=== PATIENT | male | born 1990 | race Caucasian/White ===

== ENCOUNTER 2019-05-06 10:41 | Emergency (ER) | payer BC, MEDICAID ==
[2019-05-06] MEDS ORDERED: Sodium Chloride 0.9% 10 ML Syringe FLUSH PRN (11:49)
[2019-05-06] MEDS ORDERED: Ondansetron 4 MG/2 ML SDV IVPUSH ONE (11:49)
[2019-05-06] MEDS ORDERED: Sodium Chloride 0.9% 1,000 ML IV SCH (12:00)
--- NOTE | 2019-05-06 12:45 | CR ---
Chest: Portable view of the chest was obtained. Comparison: No previous chest x-ray. Heart size and mediastinum are normal. Increased density within the left base and within the right upper lung. Lungs otherwise are clear. Bony structures are grossly intact. Impression: 1. Increased density within the left base and within the right upper lung most likely representing areas of pneumonia. Diagnostic code #3 This report was dictated in [place] Standard Time
--- NOTE | 2019-05-06 14:06 | EDM.PDOC ---
ED HPI GENERAL MEDICAL PROBLEM - General Chief Complaint: Gastrointestinal Problem Stated Complaint: SOB/FLU SYMPTOMS Time Seen by Provider: 05/06/19 11:42 Source of Information: Reports: Patient - History of Present Illness INITIAL COMMENTS - FREE TEXT/NARRATIVE: 28-year-old male comes in with history of nausea, vomiting, diarrhea for many days. We'll he is also coughing. Some sore throat symptoms along with that. Having chills but no obvious fever. The vomiting diarrhea is now somewhat better. The coughing has gotten worse. Treatments COLLECTIONS SPECIALIST: Reports: Other (see below) Other Treatments COLLECTIONS SPECIALIST: none - Related Data Allergies Allergy/AdvReac Type Severity Reaction Status Date / Time phenytoin [From Dilantin] Allergy Other Verified 05/06/19 11:02 Home Meds: Home Meds Doxycycline [Vibramycin] 100 mg PO BID #20 tab 05/06/19 [Rx] Past Medical History Psychiatric History: Reports: ADD, ADHD, Bipolar, Learning Disability - Past Surgical History GI Surgical History: Reports: Hernia, Abdominal Social & Family History - Tobacco Use Smoking Status *Q: Current Every Day Smoker Years of Tobacco use: 12 Packs/Tins Daily: 1.5 Used Tobacco, but Quit: No - Caffeine Use Caffeine Use: Reports: Coffee, Soda - Recreational Drug Use Recreational Drug Type: Reports: Marijuana/Hashish Other Recreational Drug Type: daily ED ROS GENERAL - Review of Systems Review Of Systems: See Below Constitutional: Reports: Fever, Chills HEENT: Reports: Rhinitis (Mild), Throat Pain Respiratory: Reports: Shortness of Breath, Cough, Sputum Cardiovascular: Reports: Chest Pain GI/Abdominal: Reports: Diarrhea, Decreased Appetite, Nausea (With coughing), Vomiting Musculoskeletal: Reports: Other Skin: Denies: Rash (Generalized achiness) Neurological: Reports: Dizziness ED EXAM, GENERAL - Physical Exam Exam: See Below General Appearance: Alert, Mild Distress Throat/Mouth: Normal Inspection, Normal Oropharynx Head: Atraumatic Neck: Supple Respiratory/Chest: No Respiratory Distress, Lungs Clear, Normal Breath Sounds. No: Rhonchi, Wheezing Cardiovascular: Regular Rate, Rhythm GI/Abdominal: Soft, Non-Tender. No: Guarding Extremities: Normal Inspection, Normal Range of Motion Neurological: Alert, Oriented, No Motor/Sensory Deficits Skin Exam: Warm, Dry, Normal Color, No Rash Course - Vital Signs Last Recorded V/S: Last Vital Signs Temp 99.6 F 05/06/19 13:55 Pulse 97 05/06/19 13:55 Resp 18 05/06/19 13:55 BP 132/85 05/06/19 13:55 Pulse Ox 96 05/06/19 13:55 - Orders/Labs/Meds Labs: Laboratory Tests 05/06/19 05/06/19 Range/Units 12:00 12:00 WBC 13.23 H (4.23-9.07) K/mm3 RBC 5.10 (4.63-6.08) M/mm3 Hgb 16.2 (13.7-17.5) gm/dl Hct 45.6 (40.1-51.0) % MCV 89.4 (79.0-92.2) fl MCH 31.8 (25.7-32.2) pg MCHC 35.5 (32.2-35.5) g/dl RDW Std Deviation 38.8 (35.1-43.9) fL Plt Count 307 (163-337) K/mm3 MPV 8.8 L (9.4-12.3) fl Neut % (Auto) 85.6 H (34.0-67.9) % Lymph % (Auto) 5.4 L (21.8-53.1) % Ida % (Auto) 7.5 (5.3-12.2) % Eos % (Auto) 1.1 (0.8-7.0) Baso % (Auto) 0.1 (0.1-1.2) % Neut # (Auto) 11.33 H (1.78-5.38) K/mm3 Lymph # (Auto) 0.72 L (1.32-3.57) K/mm3 Ida # (Auto) 0.99 H (0.30-0.82) K/mm3 Eos # (Auto) 0.14 (0.04-0.54) K/mm3 Baso # (Auto) 0.01 (0.01-0.08) K/mm3 Manual Slide Review Normal smear Sodium 142 (136-145) mEq/L Potassium 3.7 (3.5-5.1) mEq/L Chloride 105 (98-107) mEq/L Carbon Dioxide 20 L (21-32) mEq/L Anion Gap 20.7 H (5-15) BUN 17 (7-18) mg/dL Creatinine 0.7 (0.7-1.3) mg/dL Est Cr Clr Drug Dosing 134.64 mL/min Estimated GFR (MDRD) > 60 (>60) mL/min BUN/Creatinine Ratio 24.3 H (14-18) Glucose 97 (74-106) mg/dL Calcium 8.8 (8.5-10.1) mg/dL Total Bilirubin 0.5 (0.2-1.0) mg/dL AST 19 (15-37) U/L ALT 25 (16-63) U/L Alkaline Phosphatase 82 (46-116) U/L Total Protein 7.4 (6.4-8.2) g/dl Albumin 3.4 (3.4-5.0) g/dl Globulin 4.0 gm/dL Albumin/Globulin Ratio 0.9 L (1-2) Meds: Medications Discontinued Medications Generic Name Dose Route Start Last Admin Trade Name Freq PRN Reason Stop Dose Admin Sodium Chloride 1,000 mls @ 999 mls/hr 05/06/19 12:00 05/06/19 12:06 Normal Saline IV 999 mls/hr ONETIME KENDALL Administration Ondansetron HCl 4 mg 05/06/19 11:49 05/06/19 12:04 Zofran IVPUSH 05/06/19 11:50 4 mg ONETIME ONE Administration Sodium Chloride 10 ml 05/06/19 11:49 05/06/19 12:00 Saline Flush FLUSH 10 ml ASDIRECTED PRN Administration Keep Vein Open - Re-Assessments/Exams Free Text/Narrative Re-Assessment/Exam: 05/07/19 15:50 Influenza screen did come back negative. Chest x-ray showed very mild infiltrate left base, right upper lung compatible and suggestive for pneumonia. Discharge instructions as documented. Departure - Departure Time of Disposition: 14:04 Disposition: Home, Self-Care 01 Condition: Fair Clinical Impression: Pneumonia, Bronchitis, Vomiting, Diarrhea - Discharge Information Prescriptions: Doxycycline [Vibramycin] 100 mg PO BID #20 tab Instructions: Nausea and Vomiting, Adult, Acute Bronchitis, Adult, Community- Acquired Pneumonia, Adult, [id number] Referrals: PCP,None [Primary Care Provider] - Forms: ED Department Discharge Additional Instructions: Doxycycline 100 mg twice daily for 10 days or until gone, clear liquids and very bland diet as tolerated, probiotic twice daily for 1 week or until after symptoms have completely resolved. Follow up clinic if not much better within 5- 7 days as expected, return to ED as needed. Sepsis Event Note - Evaluation Sepsis Screening Result: No Definite Risk - Focused Exam Date Exam was Performed: 05/07/19 Time Exam was Performed: 15:46
== END 2019-05-06 14:15 | disposition home or self-care (01) ==
LOC: JD.ED 10:41
DX: J18.9 Pneumonia, unspecified organism (principal); J40 Bronchitis, not specified as acute or chronic; R11.10 Vomiting, unspecified; R19.7 Diarrhea, unspecified; F17.210 Nicotine dependence, cigarettes, uncomplicated; Z88.8 Allergy status to other drugs, medicaments and biological substances
CPT/HCPCS: 36415; 71045; 80053; 85025; 87804; 99284; J2405; J7030

== ENCOUNTER 2020-06-20 14:09 | Emergency (ER) | payer OTHER ==
[2020-06-20] MEDS ORDERED: HYDROmorphone 0.5 MG/0.5 ML Syringe IM ONE (14:23)
--- NOTE | 2020-06-20 14:28 | EDM.PDOC ---
ED HPI GENERAL MEDICAL PROBLEM - General Chief Complaint: Upper Extremity Injury/Pain Stated Complaint: RT HAND INJURY Time Seen by Provider: 06/20/20 14:19 Source of Information: Reports: Patient, RN Notes Reviewed History Limitations: Reports: No Limitations - History of Present Illness INITIAL COMMENTS - FREE TEXT/NARRATIVE: Patient is a 29-year-old male who presents to the ED for the evaluation of a right hand injury. Patient notes that he punched a wall last night, developed pain into the ulnar aspect of his right hand. He does note that there is a bump that was not there before as well. He has been unable to do much for gripping in his hand, or move his wrist much due to the pain in the hand. He has no numbness or tingling distal to the injury. He did not take anything for pain management, but has been drinking a little bit of alcohol to relieve the pain. Patient denies any other sick-like symptoms, fever/chills, cough/shortness of breath, nausea/vomiting/diarrhea. Patient notes that he has had a boxer's fracture in the past as well. He notes he is right-hand dominant. Right Hand Pain Score (Numeric/FACES): 5 - Related Data Allergies Allergy/AdvReac Type Severity Reaction Status Date / Time phenytoin [From Dilantin] Allergy Other Verified 06/20/20 14:22 Home Meds: Home Meds . [No Known Home Meds] 06/20/20 [History] Past Medical History Psychiatric History: Reports: ADD, ADHD, Bipolar, Learning Disability - Past Surgical History GI Surgical History: Reports: Hernia, Abdominal Social & Family History - Caffeine Use Caffeine Use: Reports: Coffee, Soda Review of Systems - Review of Systems Review Of Systems: Comprehensive ROS is negative, except as noted in HPI. ED EXAM, GENERAL - Physical Exam Exam: See Below Exam Limited By: No Limitations General Appearance: Alert, WD/WN, No Apparent Distress Respiratory/Chest: No Respiratory Distress, Lungs Clear, Normal Breath Sounds, No Accessory Muscle Use, Chest Non-Tender Cardiovascular: Normal Peripheral Pulses, Regular Rate, Rhythm, No Edema Peripheral Pulses: 2+: Radial (L), Radial (R) Extremities: Normal Capillary Refill, Limited Range of Motion (of right hand d/t pain, There is a small lump/bump on the posterior ulnar aspect of the patien't right hand.) Neurological: Alert, Oriented, Normal Cognition, No Motor/Sensory Deficits Psychiatric: Normal Affect, Normal Mood Skin Exam: Warm, Dry, Intact, Normal Color, No Rash Course - Vital Signs Last Recorded V/S: Last Vital Signs Temp 97.3 F 06/20/20 14:19 Pulse 100 06/20/20 14:19 Resp 16 06/20/20 14:19 BP 149/97 H 06/20/20 14:19 Pulse Ox - Orders/Labs/Meds Orders: Active Orders 24 hr Category Date Time Status Hand Comp Min 3V Rt [CR] Stat Exams 06/20/20 14:22 Ordered DME for Discharge [COMM] Routine Oth 06/20/20 14:57 Ordered Meds: Medications Discontinued Medications Generic Name Dose Route Start Last Admin Trade Name Freq PRN Reason Stop Dose Admin Hydromorphone HCl 0.5 mg 06/20/20 14:23 06/20/20 14:28 Dilaudid IM 06/20/20 14:24 Not Given ONETIME ONE - Re-Assessments/Exams Free Text/Narrative Re-Assessment/Exam: 06/20/20 14:28 Patient presents to the ED for his right hand injury. Highly suspect 1/5 metacarpal fracture in nature due to the clinical features of his hands on initial exam. He will be given 0.5 mg IM Dilaudid and we will get hand x-rays. 06/20/20 14:58 X-ray has been taken, does demonstrate the possibility of a small chip or avulsion type fracture off of the base of the fifth metacarpal. This was appreciated by myself and Dr. Mckeon. We will go ahead and get him in a cock-up wrist splint from the [facility] [place] [place] closet as this does not appear to be a major fracture by any means. We will have him follow-up with Ortho for casting or other o rthopedic management down the line. Departure - Departure Time of Disposition: 14:59 Disposition: Home, Self-Care 01 Condition: Good Clinical Impression: Closed fracture of 5th metacarpal Qualifiers: Encounter type: initial encounter Metacarpal location: base Fracture alignment: nondisplaced Laterality: right Qualified Code(s): S62.346A - Nondisplaced fracture of base of fifth metacarpal bone, right hand, initial encounter for closed fracture - Discharge Information *PRESCRIPTION DRUG MONITORING PROGRAM REVIEWED*: No *COPY OF PRESCRIPTION DRUG MONITORING REPORT IN PATIENT MARSHALL: No Instructions: Boxer's Fracture Referrals: PCP,None [Primary Care Provider] - Forms: ED Department Discharge Additional Instructions: You have been evaluated in the ED for your right hand injury. Your x-ray demonstrated a small chip/avulsion type fracture off the base of the fifth metacarpal, this is very small however, and official radiology read is still pending. We have placed you in a splint for immobilization due to the pain and swelling you are having in the area that overlies the fracture in question. Please use ice as tolerated to the affected area. You may elevate the affected area to provide further relief from swelling. You may take Tylenol 500 mg or ibuprofen 600mg q6 hrs for pain relief. Please do so until you have a tolerable level of pain with activity. Do not exceed 4000mg Tylenol, Do not exceed 3200mg ibuprofen in a 24 hour time period. Please call Ortho for follow-up and further evaluation Dr. Perry is our orthopedic surgeon, his office number is [phone]. Please call and set up an appointment as soon as possible for further management. Please return to ED if your symptoms should change or worsen. Sepsis Event Note (ED) - Evaluation Sepsis Screening Result: No Definite Risk - Focused Exam Vital Signs: Vital Signs Temp Pulse Resp BP 06/20/20 14:19 97.3 F 100 16 149/97 H - My Orders Last 24 Hours: My Active Orders 06/20/20 14:22 Hand Comp Min 3V Rt [CR] Stat 06/20/20 14:57 DME for Discharge [COMM] Routine - Assessment/Plan Last 24 Hours: My Active Orders 06/20/20 14:22 Hand Comp Min 3V Rt [CR] Stat 06/20/20 14:57 DME for Discharge [COMM] Routine
--- NOTE | 2020-06-21 09:06 | CR ---
Right hand: 4 views of the right hand were obtained. Comparison: No prior hand studies available. Small calcification is seen off the proximal fifth metacarpal which appears to be old. Second calcification is seen at the base of the third and fourth metacarpals which is also felt to be old. Joint spaces are preserved. No acute fracture, dislocation or other bony abnormality is seen. Impression: 1. Small calcifications within the base of the third through fifth metacarpals which are felt to be old. 2. Nothing acute is appreciated. Diagnostic code #2
== END 2020-06-20 15:15 | disposition home or self-care (01) ==
LOC: JD.ED 14:09
DX: S62.346A Nondisplaced fracture of base of fifth metacarpal bone, right hand, initial encounter for closed fracture (principal); Z88.8 Allergy status to other drugs, medicaments and biological substances; W22.01XA Walked into wall, initial encounter
CPT/HCPCS: 73130-26-RT; 73130-RT; 99283